=== PATIENT | male | born 1985 | race Caucasian/White ===

== ENCOUNTER 2018-08-16 10:35 | Emergency (ER) | payer SELFPAY ==
[~2018-08-16] VITALS: Ht 188 cm; Wt 115.9 kg
[2018-08-16 10:41] VITALS: BP 143/86; Ht 188 cm; Wt 115.9 kg
[2018-08-16] MEDS ORDERED: VENTOLIN HFA18 GM INH (10:41)
[2018-08-16 11:31] LABS: APPEARANCE CLOUDY (CLEAR); COLOR YELLOW (YELLOW); GLUCOSE NEGATIVE (NEGATIVE); KETONE NEGATIVE (NEGATIVE); NITRITE NEGATIVE (NEGATIVE); PROTEIN NEGATIVE (NEGATIVE); SPECIFIC GRAVITY 1.005 (1.005-1.020)
[2018-08-16 11:32] LABS: BILIRUBIN NEGATIVE (NEGATIVE); UROBILINOGEN NORMAL (NORMAL)
[2018-08-16] MEDS ORDERED: VOLTAREN75 MG PO (12:40)
[2018-08-16] MEDS ORDERED: VIBRAMYCIN 100100 MG PO (12:40)
[2018-08-16] MEDS ORDERED: LEVOFLOXACIN500 MG PO (12:40)
== END 2018-08-16 15:15 | disposition home or self-care (01) ==
LOC: D.ER 10:35
PROVIDERS: Family Medicine
DX: N45.3 Epididymo-orchitis (principal); F17.200 Nicotine dependence, unspecified, uncomplicated

== ENCOUNTER 2020-05-01 13:40 | Emergency (ER) | payer MEDICAID ==
[~2020-05-01] VITALS: Ht 188 cm; Wt 113.6 kg
[~2020-05-01 13:40] MED LIST: LEVOFLOXACIN500 MG PO; VENTOLIN HFA18 GM INH; VIBRAMYCIN 100100 MG PO; VOLTAREN75 MG PO
[2020-05-01 13:57] VITALS: Ht 188 cm; Wt 113.6 kg
[2020-05-01 14:27] LABS: BASOPHILS 0.2 % (0-2); EOSINOPHILS 3.5 % (0-7); HEMOGLOBIN 12.7 g/dL (13.5-17.5); IMMATURE GRANULOCYTES 0.3 % (0-5); LYMPHOCYTES 17.5 % (15-50); MCH 28.7 pg (26.0-34.0); MCHC 33.4 g/dL (31.0-37.0); MEAN PLATELET VOLUME 8.6 fL (7.4-10.4); MONOCYTES 12.7 % (2-11); NEUTROPHILS 65.8 % (40-80); PLATELET COUNT 243 10x3/uL (130-400); RBC 4.42 10x6/uL (4.20-6.10); RDW 12.8 % (11.5-14.5); WBC 13.3 10x3/uL (4.8-10.8)
[2020-05-01 14:36] LABS: CALC OSMOLALITY 270 mosm/kg (275-300); CALCIUM 7.8 mg/dL (8.5-10.1); CARBON DIOXIDE 24.1 mmol/L (21.0-32.0); CHLORIDE - SERUM 104 mmol/L (98-107); CREATININE - SERUM 1.1 mg/dL (0.6-1.3); GLUCOSE 109 mg/dL (74-106); POTASSIUM - SERUM 3.6 mmol/L (3.5-5.1); SODIUM 136 mmol/L (136-145); UREA NITROGEN 8 mg/dL (7-18); eGFR NON AFRICAN AMERICAN 81 mL/min (90-120)
[2020-05-01 14:42] LABS: ALBUMIN 2.8 g/dL (3.4-5.0); ALKALINE PHOSPHATASE 97 U/L (30-120); ALT (SGPT) 85 U/L (10-68); BILIRUBIN - TOTAL 0.32 mg/dL (0.2-1.3); PROTEIN - SERUM 6.7 g/dL (6.4-8.2)
[2020-05-01 15:45] LABS: BILIRUBIN NEGATIVE (NEGATIVE); KETONE NEGATIVE (NEGATIVE); NITRITE NEGATIVE (NEGATIVE); UROBILINOGEN NORMAL (NORMAL)
[2020-05-01 15:48] LABS: BACTERIA FEW /hpf (NONE SEEN); RED CELLS - URINE OCC /hpf (0-5); WHITE CELLS - URINE >50 /hpf (0-5)
[2020-05-01] MEDS ORDERED: LEVAQUIN750 MG PO (16:06)
[2020-05-01] MEDS ORDERED: VOLTAREN75 MG PO (16:06)
[2020-05-01] MEDS ORDERED: HYDROCODON-ACE1 EAC7 PO (16:06)
[2020-05-01 17:56] VITALS: BP 106/64
== END 2020-05-01 17:57 | disposition home or self-care (01) ==
LOC: D.ER 13:40
PROVIDERS: Family Medicine
DX: R22.2 Localized swelling, mass and lump, trunk (principal); R79.89 Other specified abnormal findings of blood chemistry; N43.3 Hydrocele, unspecified; I86.1 Scrotal varices; D72.829 Elevated white blood cell count, unspecified; N39.0 Urinary tract infection, site not specified; J45.909 Unspecified asthma, uncomplicated